=== PATIENT | male | born 1965 | race Caucasian/White ===

== ENCOUNTER 2018-02-28 09:54 | Emergency (ER) | payer BC ==
[~2018-02-28 09:54] MED LIST: Sodium Chloride 0.9% 100 ML BAG ONE
[2018-02-28] MEDS ORDERED: Iopamidol 370 76% 100 ML VIAL ONE (10:38)
[2018-02-28 10:52] LABS: #Basophils 0.1 thou/uL (0.0-0.2); #Eosinphils 0.1 thou/uL (0.0-0.7); #Lymphocytes 3.6 thou/uL (1.20-3.40); #Monocytes 0.9 thou/uL (0.11-0.59); #Neutrophils 13.7 thou/uL (1.40-6.50); %Basophils 0.6 % (0.0-1.0); %Eosinophils 0.4 % (0.0-10.0); %Lymphocytes 19.8 % (21.0-51.0); %Monocytes 4.9 % (0.0-10.0); %Neutrophils 74.4 % (42.0-75.0); Mean Corpuscular HGB CONC 34.9 g/dL (32.0-36.0); Mean Corpuscular Hemoglobin 33.1 pg (27.0-31.0); Mean Corpuscular Volume 94.7 fL (78.0-98.0); Mean Platelet Volume 6.4 fL (7.4-10.4); Platelet Count 341 thou/uL (130-400); RBC Distribution Width 11.9 % (11.5-14.5); Red Blood Cell (RBC) Count 4.85 mill/uL (4.70-6.10); White Blood Cell (WBC) Count 18.4 thou/uL (4.8-10.8)
[2018-02-28] MEDS ORDERED: Ampicillin/Sulbactam 3 GM VIAL ONE (11:10)
[2018-02-28 11:15] LABS: ALT (SGPT) 31 U/L (8-55); AST (SGOT) 31 U/L (5-34); Albumin 4.5 g/dL (3.5-5.0); Alkaline Phosphatase 134 U/L (40-150); Anion Gap 17 mmol/L (10-20); BUN (Urea Nitrogen) 9 mg/dL (8.4-25.7); Bilirubin, Total 0.7 mg/dL (0.2-1.2); Calc. Creatinine Clearance 0 mL/min (70-130); Calcium 9.8 mg/dL (7.8-10.44); Chloride 106 mmol/L (98-107); Estimated GFR-MDRD Greater than 90; Globulin 3.3 g/dL (2.4-3.5); Glucose 96 mg/dL (70-105); Potassium 4.1 mmol/L (3.5-5.1); Protein, Total 7.8 g/dL (6.0-8.3); Sodium 140 mmol/L (136-145)
[2018-02-28 11:17] LABS: CKMB 1.2 ng/mL (0-6.6)
[2018-02-28 11:18] LABS: Carbon Dioxide 21 mmol/L (22-29)
[2018-02-28 12:10] LABS: Bilirubin Negative (Negative); Blood, Urine Negative (Negative); Clarity Clear (Clear); Glucose, Urine (Dipstick) Negative (Negative); Leukocyte Negative (Negative); Nitrite Negative (Negative); Protein, Urine (Dipstick) Negative (Neg-Trace); Urobilinogen 0.2 mg/dL (0.2-1.0)
[2018-02-28 12:13] LABS: Specific Gravity, Urine 1.006 (1.002-1.036)
[2018-02-28 12:36] LABS: Bacteria/HPF Rare-Few HPF (None Seen); RBC/HPF 0-3 HPF (0-3); Squamous Epithelial 0-3 HPF (0-3); WBC/HPF None Seen HPF (0-3)
[2018-02-28] MEDS ORDERED: Acetaminophen 500 MG TAB ONE (12:45)
--- NOTE | 2018-02-28 13:20 | CT ---
CT NECK WITH CONTRAST: 02/28/2018 HISTORY: A 52-year-old male with left neck pain and swelling, beginning three days ago. COMPARISON: None. FINDINGS: There is a broad region of moderately low attenuation in the soft tissues, broadly abutting the lingu al side osseous cortical surface of the left body of the mandible. This low attenuation measures yeimy roximately 2 x 0.5 x 2.5 cm, and it medially displaces the left sublingual glands. There is no evide nce of osseous cortical defect at the lingual side of the left body of the mandible. There is absenc e of several teeth. There is a periapical cyst (radicular cyst) around the root of the remaining lef t posterior molar tooth, but there is no osseous cortical defect to which this communicates. There is edema in the soft tissues of the subcutaneous fat superficial to the thickened left platysma muscle. There are several mildly enlarged, reactive level 1A (submental) and left level 1B (submand ibular) lymph nodes. No other significantly enlarged cervical lymph nodes are visualized. There is an approximately 1.2 x 1 x 1.2 cm soft tissue density mass-like lesion at the left aryepiglo ttic fold and left paraglottic fat, causing slight medial bulge in the left aryepiglottic fold. There is a soft tissue asymmetrical bulge in the right nasopharynx that effaces the right fossa of Ro senmuller. The bilateral submandibular glands have somewhat increased enhancement, but this is symmetrical and h omogeneous bilaterally. The bilateral parotid glands, parapharyngeal spaces, retropharyngeal space, posterior cervical space, and hospital sales representative space are unremarkable. IMPRESSION: 1. Multiple separate abnormalities in the neck, for which otolaryngology consultation is recommended . 2. Infectious/inflammatory process (cellulitis, phlegmon, or abscess) on the left side of the oral c avity, involving the gingiva abutting the lingual side of the left mandibular body. Although there i s a periapical/radicular cyst associated with one of the left mandibular teeth, it does not appear to communicate with this. Recommend dentist consultation. 3. Edema representing an inflammatory process, involving the left submandibular space and the soft t issues superficial to it, without abscess in this location. 4. Bulge in soft tissues of right nasopharynx, suspicious for nasopharyngeal carcinoma. Recommend d irect visualization by risk mgr. 5. A small mass in the left supraglottic larynx. Recommend direct visualization by risk mgr . POS: ELI
== END 2018-02-28 13:30 | disposition short-term general hospital (02) ==
LOC: MADERS 09:54
DX: L02.11 Cutaneous abscess of neck (principal); R22.1 Localized swelling, mass and lump, neck; E78.00 Pure hypercholesterolemia, unspecified; F41.9 Anxiety disorder, unspecified; F17.210 Nicotine dependence, cigarettes, uncomplicated; Z79.899 Other long term (current) drug therapy; Z79.891 Long term (current) use of opiate analgesic
CPT/HCPCS: 70491; 80053; 81001; 82553; 84484; 85025; 87040; 93005; 94760; 96365; J0295; J7050

== ENCOUNTER 2018-08-14 10:31 | Outpatient (CLI) | payer BC ==
--- NOTE | 2018-08-14 10:58 | RAD ---
LUMBAR SPINE 3 VIEWS: HISTORY: Acute left-sided low back pain with sciatica. FINDINGS: Multilevel disk-osteophytosis and facet arthrosis. No evidence for acute compression fracture or sig nificant malalignment. IMPRESSION: Lumbar spondylosis. No other acute process. POS: ELI
== END 2018-08-14 10:32 | disposition home or self-care (01) ==
LOC: MADRAD 10:31
PROVIDERS: ATTEND Family Medicine
DX: M54.42 Lumbago with sciatica, left side (principal); M47.816 Spondylosis without myelopathy or radiculopathy, lumbar region
CPT/HCPCS: 72100

== ENCOUNTER 2021-10-31 21:00 | Emergency (ER) | payer MEDICARE, BC ==
[~2021-10-31 21:00] MED LIST changes: +Iopamidol 370 76% 100 ML VIAL ONE; -Sodium Chloride 0.9% 100 ML BAG ONE
[2021-10-31] MEDS ORDERED: Aspirin Chewable 81 MG TAB ONE (21:40)
[2021-10-31] MEDS ORDERED: Nitroglycerin 2% Ointment 1 INCH/1 GM Packet ONE (21:43)
[2021-10-31 21:53] LABS: PTT 26.1 sec (22.9-36.1); Prothrombin Time 13.4 sec (12.0-14.7)
[2021-10-31 21:58] LABS: #Basophils 0.2 thou/uL (0.0-0.2); #Eosinphils 0.2 thou/uL (0.0-0.7); #Lymphocytes 3.9 thou/uL (1.20-3.40); #Monocytes 0.8 thou/uL (0.11-0.59); #Neutrophils 6.4 thou/uL (1.40-6.50); %Basophils 1.4 % (0.0-1.0); %Eosinophils 1.6 % (0.0-10.0); %Lymphocytes 34.4 % (21.0-51.0); %Monocytes 6.9 % (0.0-10.0); %Neutrophils 55.7 % (42.0-75.0); Hemoglobin 14.1 g/dL (14.0-18.0); Mean Corpuscular HGB CONC 29.9 g/dL (32.0-36.0); Mean Corpuscular Hemoglobin 31.1 pg (27.0-31.0); Mean Corpuscular Volume 104.1 fL (78.0-98.0); Mean Platelet Volume 8.1 fL (7.4-10.4); Platelet Count 293 thou/uL (130-400); RBC Distribution Width 12.5 % (11.5-14.5); RBC Morphology Normal; Red Blood Cell (RBC) Count 4.53 mill/uL (4.70-6.10); White Blood Cell (WBC) Count 11.4 thou/uL (4.8-10.8)
[2021-10-31 22:11] LABS: ALT (SGPT) 27 U/L (8-55); AST (SGOT) 23 U/L (5-34); Albumin 4.1 g/dL (3.5-5.0); Alkaline Phosphatase 116 U/L (40-110); Anion Gap 16 mmol/L (10-20); BUN (Urea Nitrogen) 20 mg/dL (8.4-25.7); Bilirubin, Total 0.2 mg/dL (0.2-1.2); Calc. Creatinine Clearance 0 mL/min (70-130); Calcium 8.9 mg/dL (7.8-10.44); Carbon Dioxide 22 mmol/L (22-29); Chloride 108 mmol/L (98-107); Globulin 2.4 g/dL (2.4-3.5); Glucose 116 mg/dL (70-105); Protein, Total 6.5 g/dL (6.0-8.3); Sodium 142 mmol/L (136-145)
[2021-10-31 22:11] LABS: Digoxin 0.21 ng/mL (0.8-2.0)
== END 2021-11-01 00:56 | disposition short-term general hospital (02) ==
LOC: MADERS 21:00
DX: I24.9 Acute ischemic heart disease, unspecified (principal); I70.201 Unspecified atherosclerosis of native arteries of extremities, right leg; R89.2 Abnormal level of other drugs, medicaments and biological substances in specimens from other organs, systems and tissues; E78.00 Pure hypercholesterolemia, unspecified; F17.210 Nicotine dependence, cigarettes, uncomplicated; Z79.82 Long term (current) use of aspirin; Z79.899 Other long term (current) drug therapy
CPT/HCPCS: 71045; 74177; 80053; 80162; 84484; 85025; 85610; 85730; 93005; 94760; Q9967

== ENCOUNTER 2022-03-09 17:39 | Emergency (ER) | payer MEDICARE, BC ==
[2022-03-09] MEDS ORDERED: Boostrix 0.5 ML (Tdap) VIAL ONE (18:06)
== END 2022-03-09 20:15 | disposition home or self-care (01) ==
LOC: MADERS 17:39
DX: S61.412A Laceration without foreign body of left hand, initial encounter (principal); E78.00 Pure hypercholesterolemia, unspecified; F17.210 Nicotine dependence, cigarettes, uncomplicated; W27.0XXA Contact with workbench tool, initial encounter; Z23 Encounter for immunization; Z79.899 Other long term (current) drug therapy
CPT/HCPCS: 12001; 90471; 90715

== ENCOUNTER 2022-08-21 09:44 | Outpatient (CLI) | payer BC, MEDICARE ==
[2022-08-21 10:12] LABS: ALT (SGPT) 36 U/L (8-55); AST (SGOT) 29 U/L (5-34); Albumin 4.5 g/dL (3.5-5.0); Alkaline Phosphatase 102 U/L (40-110); Anion Gap 13 mmol/L (10-20); BUN (Urea Nitrogen) 17 mg/dL (8.4-25.7); Bilirubin, Total 0.5 mg/dL (0.2-1.2); Calc. Creatinine Clearance 0 mL/min (70-130); Calcium 9.6 mg/dL (7.8-10.44); Carbon Dioxide 25 mmol/L (22-29); Cardiac Risk 4.5 (Less than 4.5); Chloride 108 mmol/L (98-107); Cholesterol 144 mg/dl (< 200 Desired); Estimated GFR 68; Globulin 2.8 g/dL (2.4-3.5); Glucose 99 mg/dL (70-105); HDL Cholesterol 32 mg/dL (>60 Neg Risk); LDL Cholesterol, Calculated 86 mg/dL; Potassium 4.8 mmol/L (3.5-5.1); Protein, Total 7.3 g/dL (6.0-8.3); Sodium 141 mmol/L (136-145); Triglycerides 131 mg/dL (Less than 150)
== END 2022-08-21 09:45 | disposition home or self-care (01) ==
LOC: MADLABBHPM 09:44 → MADLAB 09:45
PROVIDERS: ATTEND Family Medicine
DX: E78.2 Mixed hyperlipidemia (principal)
CPT/HCPCS: 80053; 80061

== ENCOUNTER 2023-06-09 13:17 | Emergency (ER) | payer MEDICARE ==
[2023-06-09 13:50] LABS: #Basophils 0.1 thou/uL (0.0-0.2); #Eosinphils 0.1 thou/uL (0.0-0.7); #Lymphocytes 4.1 thou/uL (1.20-3.40); #Monocytes 0.7 thou/uL (0.11-0.59); #Neutrophils 5.7 thou/uL (1.40-6.50); %Basophils 1.1 % (0.0-1.0); %Eosinophils 1.3 % (0.0-10.0); %Lymphocytes 38.2 % (21.0-51.0); %Monocytes 6.3 % (0.0-10.0); %Neutrophils 53.2 % (42.0-75.0); Hematocrit 41.4 % (42.0-52.0); Hemoglobin 15.1 g/dL (14.0-18.0); MDiff Complete? YES; Macrocytosis SLIGHT = 6-15 cells (100X) (0-5/hpf); Mean Corpuscular HGB CONC 36.4 g/dL (32.0-36.0); Mean Corpuscular Hemoglobin 37.2 pg (27.0-31.0); Mean Corpuscular Volume 102.2 fl (78.0-98.0); Mean Platelet Volume 7.9 fL (7.4-10.4); Platelet Adequacy Comment Appears Adequate; Platelet Count 224 10x3/uL (130-400); RBC Distribution Width 12.2 % (11.5-14.5); Red Blood Cell (RBC) Count 4.05 mill/uL (4.70-6.10); White Blood Cell (WBC) Count 10.7 10x3/uL (4.8-10.8)
[2023-06-09 13:52] LABS: Prothrombin Time 13.1 sec (12.0-14.7)
[2023-06-09 13:53] LABS: PTT 24.3 sec (22.9-36.1)
[2023-06-09 14:01] LABS: ALT (SGPT) 21 U/L (8-55); AST (SGOT) 21 U/L (5-34); Alkaline Phosphatase 98 U/L (40-110); Anion Gap 15 mmol/L (10-20); BUN (Urea Nitrogen) 16 mg/dL (8.4-25.7); Bilirubin, Total 0.2 mg/dL (0.2-1.2); CK (CPK) 88 U/L (30-200); Calc. Creatinine Clearance 0 mL/min (70-130); Calcium 8.9 mg/dL (7.8-10.44); Carbon Dioxide 21 mmol/L (22-29); Chloride 108 mmol/L (98-107); Estimated GFR 65; Globulin 2.5 g/dL (2.4-3.5); Glucose 92 mg/dL (70-105); Potassium 4.4 mmol/L (3.5-5.1); Protein, Total 6.5 g/dL (6.0-8.3); Sodium 140 mmol/L (136-145); Troponin I Less than 0.010 ng/mL (< 0.028)
[2023-06-09] MEDS ORDERED: Iopamidol 370 76% 100 ML VIAL ONE (14:38)
== END 2023-06-09 15:11 | disposition short-term general hospital (02) ==
LOC: MADERS 13:17
DX: I63.9 Cerebral infarction, unspecified (principal); R47.01 Aphasia; H53.131 Sudden visual loss, right eye; I10 Essential (primary) hypertension; E78.00 Pure hypercholesterolemia, unspecified; F17.210 Nicotine dependence, cigarettes, uncomplicated; Z79.82 Long term (current) use of aspirin; Z79.899 Other long term (current) drug therapy
CPT/HCPCS: 0042T; 70450; 80053; 82550; 82962; 84484; 85025; 85610; 85730; 93005; 36416; 36415-59; Q9967